=== PATIENT | female | born 1945 | race Caucasian/White ===

== ENCOUNTER → 2017-01-04 | Outpatient (CLI) | payer MEDICARE, OTHER ==
[~2017-01-04] MED LIST: ACET-2723 PO; BETA1TAB20 PO; BUSP10TA3 PO; CARV12.5 PO; CETI-273 PO; CHOL20002 PO; EPIN0.3P8 IM; FLEC50TA2 PO; FOLI-40 PO; FURO-153 PO; GLUC-147 PO; HYDR25TA PO; LACT1CAP67 PO; LORA1TAB3 PO; MAGN400T6 PO; METH2.5T33 PO; POTA-81 PO; RIVA20TA PO; VENL150C42 PO; [UNRECOGNIZED DRUG - CODE] PO
--- NOTE | 2017-01-05 08:52 | DI ---
INDICATION: ITS.REASON: R04.2 HEMOPTYSIS PROCEDURE: CHEST 2-VIEWS UPRIGHT (PA \T\ LAT) Encounter: Initial COMPARISON: October 19, 2016 Findings: The lungs are stable in appearance without new focal airspace consolidation. There is no pleural effusion or pneumothorax. Paralyzed elevated right hemidiaphragm. The heart size, pulmonary vascularity and mediastinal contours are unchanged. IMPRESSION: Stable appearance of the chest without acute cardiopulmonary disease. There is a preliminary report by [facility]. .
== END ==
LOC: IMA 16:57
PROVIDERS: ATTEND Family Medicine
DX: R04.2 Hemoptysis (principal)

== ENCOUNTER → 2017-02-13 | Outpatient (CLI) | payer MEDICARE, OTHER ==
--- NOTE | 2017-02-13 11:01 | DI ---
Indication: ITS.REASON: M25.552 PAIN IN LEFT HIP PROCEDURE: HIP LEFT 2 VIEW: Encounter: Initial Comparison: None Findings: There is no acute fracture, dislocation or malalignment identified. No significant hip joint space narrowing or osteophyte formation. Impression: No acute osseous abnormality. .
== END ==
LOC: IMA 10:23
PROVIDERS: ATTEND Family Medicine
DX: M25.552 Pain in left hip (principal)